=== PATIENT | female | born 1980 | race Caucasian/White ===

== ENCOUNTER 2016-06-22 02:20 | Emergency (ER) | payer BC ==
[~2016-06-22] VITALS: Ht 157.5 cm; Wt 72.0 kg
[~2016-06-22 02:20] MED LIST: METR500T14 PO; ONDA-43 PO; PANT40TA3 PO; PERCOCET PO
[2016-06-22 02:25] VITALS: Ht 157.5 cm; Wt 72.0 kg
[2016-06-22] MEDS ORDERED: ONDANSETRON 4 MG INJ IV STA (02:41)
[2016-06-22] MEDS ORDERED: morphine 4 MG/ML VIAL IV STA (02:41)
[2016-06-22] MEDS ORDERED: SOD CHLORIDE 0.9% 500 ML IV STA (02:41)
--- NOTE | 2016-08-08 22:00 | ERD ---
ER Documentation Chief Complaint Date/Time DATE: 08/08/16 TIME: 22:00 Chief Complaint upper abd pain radaiting to back hx-gallstones, appt-07/11 cholycystectomy HPI This is a 35 year female with upper abdominal pain rating to back. Patient has history of gallstones. Patient has appointment for cholecystectomy in a few weeks. Since her weight, patient's pain is completely resolved. At this point she wants to leave AGAINST MEDICAL ADVICE. Patient understands risks of leaving AGAINST MEDICAL ADVICE including possible due to current condition. She verbalized understanding by repeating this test back in her own words. Patient will follow up. ROS All systems reviewed and are negative except as per history of present illness. Medications Home Meds Active Scripts Acetaminophen with Codeine (Acetaminophen-Cod #3 Tablet) 1 Each Tablet, 1 TAB PO Q6H Y for PAIN, #30 TAB Prov:MAYELIN LICEA 07/06/16 Docusate Sodium* (Colace*) 100 Mg Capsule, 100 MG PO BID for 14 Days, #60 CAP Prov:MAYELIN LICEA 07/06/16 Ondansetron Hcl* (Zofran*) 4 Mg Tab, 4 MG PO Q4H Y for NAUSEA AND OR VOMITING, # 30 TAB Prov:CESAR DAVIDSON 03/23/16 Reported Medications [Fluoxetine] No Conflict Check 07/04/16 Allergies Allergies: Coded Allergies: alcohol (Verified Allergy, Mild, RASH, 11/12/10) Physical Exam Physical Exam Const: [] Head: Atraumatic Eyes: Normal Conjunctiva ENT: Normal External Ears, Nose and Mouth. Neck: Full range of motion..~ No meningismus. Resp: Clear to auscultation bilaterally Cardio: Regular rate and rhythm, no murmurs Abd: Soft, non tender, non distended. Normal bowel sounds Skin: No petechiae or rashes Back: No midline or flank tenderness Ext: No cyanosis, or edema Neur: Awake and alert Psych: Normal Mood and Affect Results 24 hrs Current Medications Medications (Trade) Dose Ordered Sig/Kevyn Route PRN Reason Start Time Stop Time Status Last Admin Dose Admin Sodium Chloride (NS) 500 ml @ 500 mls/hr Q1H STAT IV 06/22/16 02:41 06/22/16 03:40 DC Morphine Sulfate (morphine) 4 mg ONCE STAT IV 06/22/16 02:41 06/22/16 02:42 DC Ondansetron HCl (Zofran Inj) 4 mg ONCE STAT IV 06/22/16 02:41 06/22/16 02:42 DC Procedures/MDM Medical decision-making: This patient was sent AGAINST MEDICAL ADVICE. Upon signing out AMA, patient is alert and oriented 4 with goal oriented speech and good decision-making capacity. Departure Diagnosis: Primary Impression: Abdominal pain Abdominal location: right upper quadrant Qualified Code: R10.11 - Right upper quadrant abdominal pain Condition: Stable AJAY JALLOH Aug 08, 2016 22:00
== END 2016-06-22 03:15 | disposition left against medical advice (07) ==
LOC: E/R 02:20 → MERGE 02:20 → E/R 03:15
DX: Z53.21 Procedure and treatment not carried out due to patient leaving prior to being seen by health care provider (principal)
CPT/HCPCS: J7040

== ENCOUNTER → 2016-06-23 | Outpatient (CLI) | payer BC ==
[~2016-06-23] MED LIST changes: +IODIXANOL LOCM 100 ML BTL ONE; +IODIXANOL LOCM 50 ML BTL ONE; +SOD CHLORIDE 0.9% 100 ML ONE
--- NOTE | 2016-06-23 13:30 | RADRPT ---
PROCEDURE: CTA Abdomen and Pelvis with contrast. CLINICAL INDICATION: Fibromuscular dysplasia TECHNIQUE: CTA of the abdomen and pelvis was performed on a multi-detector scanner. The patient w as imaged following the uncomplicated intravenous administration of 110 cc Visipaque 320. Coronal, sagittal and 3-D reformatted images were obtained from the axial source images. One or more of the following dose reduction techniques were used: automated exposure control, adjustment of the mA and/ or kV according to patient size, use of iterative reconstruction technique. CTDI = 13.92 mGy. DLP = 795.44 mGy-cm. COMPARISON: CT, 03/18/2016 FINDINGS: CT angiogram: There is no abdominal aortic aneurysm or dissection. The visualized portions of the celiac artery, SMA, BEA and bilateral renal arteries are patent without stenosis. Bilateral iliac arteries and vis ualized portions of the bilateral femoral arteries are patent without stenosis as well. CT abdomen: The lung bases are clear. The heart size is normal without pericardial effusion. Liver demonstrate s scattered small benign cysts, stable over time. Cholelithiasis is noted without evidence for chol ecystitis. Biliary tree, pancreas, spleen, adrenal glands and kidneys are unremarkable. No urolith iasis or obstructive uropathy is identified. The stomach is grossly unremarkable. There is no retr operitoneal or suzette hepatis lymphadenopathy. CT pelvis: No bowel obstruction, free intraperitoneal air or abscess is identified. There is no diverticulosis , diverticulitis, colitis or appendicitis. Urinary bladder, uterus and adnexa are grossly unremarka ble. No pelvic mass, free fluid or lymphadenopathy is identified. The surrounding osseous structures are unremarkable. No osteolytic or osteoblastic lesion is detect ed. IMPRESSION: 1. No abdominal aortic aneurysm or dissection is identified. There is no evidence of arterial wall thickening or stenosis in the abdomen and pelvis. 2. Cholelithiasis is seen, without evidence for cholecystitis. 3. No mass, lymphadenopathy, or acute inflammatory process is identified. RPTAT: QQ .Yfn Julian MD, MD Date Time Electronically viewed and signed by .Yfn Julian MD, MD on 06/23/2016 13:30 .R/
== END | disposition home or self-care (01) ==
LOC: MERGE 10:00 → C/S 10:09
PROVIDERS: ATTEND Student in an Organized Health Care Education/Training Program
DX: M85.00 Fibrous dysplasia (monostotic), unspecified site (principal); K80.20 Calculus of gallbladder without cholecystitis without obstruction
CPT/HCPCS: 75635; 84703; Q9967; Z7610

== ENCOUNTER 2016-07-04 07:15 | Inpatient (IN) | payer BC ==
[~2016-07-04] VITALS: Ht 152.4 cm; Wt 71.0 kg
[2016-07-04] VITALS (22 sets, daily range): BP systolic 115–133; BP diastolic 60–93; PULSE 60–90; RESP 16–27; Ht 152.4 cm; Wt 71.0 kg
[~2016-07-04 07:15] MED LIST changes: +CEFAZOLIN 2 GM/50 ML (PMX) 50 ML IVPB SCH; -IODIXANOL LOCM 100 ML BTL ONE; -IODIXANOL LOCM 50 ML BTL ONE; +SOD CHLORIDE 0.9% 1,000 ML IV SCH; -SOD CHLORIDE 0.9% 100 ML ONE
[2016-07-04 08:32] LABS: BASOPHILS % 0.7 % (0.0-2.0); CONDITION 1; EOSINOPHILS # 0.1 10^3/ul (0.0-0.5); EOSINOPHILS % 1.2 % (0.0-7.0); HEMATOCRIT 39.7 % (37.0-47.0); HEMOGLOBIN 13.4 g/dl (12.0-16.0); LYMPHOCYTES # 2.4 10^3/ul (0.8-2.9); LYMPHOCYTES % 39.3 % (15.0-51.0); MEAN CORPUSCULAR HEMOGLOBIN 28.7 pg (29.0-33.0); MEAN CORPUSCULAR HGB CONC 33.9 g/dl (32.0-37.0); MEAN CORPUSCULAR VOLUME 84.8 fl (82.0-101.0); MEAN PLATELET VOLUME 7.7 fl (7.4-10.4); MONOCYTE # 0.3 10^3/ul (0.3-0.9); MONOCYTES % 5.6 % (0.0-11.0); NEUTROPHIL # 3.3 10^3/ul (1.6-7.5); NEUTROPHILS % 53.2 % (39.0-77.0); PLATELET COUNT 291 10^3/UL (140-440); RED BLOOD COUNT 4.68 10^6/ul (4.20-5.40); RED CELL DISTRIBUTION WIDTH 13.7 % (11.5-14.5); UNCORRECTED WBC 6.2 10^3/ul (4.8-10.8); WHITE BLOOD COUNT 6.2 10^3/ul (4.8-10.8)
[2016-07-04 08:40] LABS: INR 1.01; PROTIME 13.3 Sec (12.2-14.2)
[2016-07-04 08:41] LABS: PARTIAL THROMBOPLASTIN TIME 29.8 Sec (25.0-35.0)
[2016-07-04 09:00] LABS: CREATININE 0.61 mg/dl (0.44-1.00); POTASSIUM 4.3 mmol/L (3.5-5.1)
[2016-07-04] MEDS ORDERED: FLUOXETINE (09:01)
[2016-07-04] MEDS ORDERED: IBUPROFEN (09:01)
[2016-07-04] MEDS ORDERED: ONDANSETRON 4 MG INJ ONE (09:30)
[2016-07-04] MEDS ORDERED: CEFAZOLIN 1 GM INJ ONE (09:30)
[2016-07-04] MEDS ORDERED: DEXAMETHASONE 4 MG/ML 1 ML INJ ONE (09:30)
[2016-07-04] MEDS ORDERED: FENTAnyl 50 MCG/ML VIAL ONE (09:30)
[2016-07-04] MEDS ORDERED: MIDAZOLAM 1 MG/ML 2 ML INJ ONE (09:30)
[2016-07-04] MEDS ORDERED: ROCURONIUM 50 MG INJ ONE (09:30)
[2016-07-04] MEDS ORDERED: PROPOFOL 20 ML ONE (09:30)
[2016-07-04] MEDS ORDERED: DIPHENHYDRAMINE 50 MG INJ ONE (09:31)
[2016-07-04] MEDS ORDERED: LIDOCAINE 2% JELLY 5 ML ONE (09:31)
[2016-07-04] MEDS ORDERED: GLYCOPYRROLATE 0.4 MG INJ ONE (10:30)
[2016-07-04] MEDS ORDERED: MIDAZOLAM 1 MG/ML 2 ML INJ IV PRN (10:30)
[2016-07-04] MEDS ORDERED: ONDANSETRON 4 MG INJ IV PRN (10:30)
[2016-07-04] MEDS ORDERED: NEOSTIGMINE 3 MG/3 ML SYRINGE ONE (10:30)
[2016-07-04] MEDS ORDERED: ALBUTEROL 0.5% (NEB) 2.5 MG/0.5 ML AMP INH ONE (10:30)
[2016-07-04] MEDS ORDERED: hydrALAzine 20 MG INJ IV PRN (10:30)
[2016-07-04] MEDS ORDERED: EPHEDrine SULFATE 50 MG/5 ML SYG IV PRN (10:30)
[2016-07-04] MEDS ORDERED: HYDROmorphONE (0.2 MG/ML) 10ML SYG IV PRN ×2 (10:30)
[2016-07-04] MEDS ORDERED: FENTAnyl 50 MCG/ML VIAL IV PRN (10:30)
[2016-07-04] MEDS: HYDROmorphONE (0.2 MG/ML) 10ML SYG IV PRN ×2 (11:53→11:59)
[2016-07-04] MEDS ORDERED: morphine 2 MG INJ IV PRN ×2 (13:00→15:00)
[2016-07-04] MEDS: HYDROmorphONE 1 MG/ML SYG IV PRN ×3 (13:26→20:02)
[2016-07-04] MEDS: D5W-0.45 NACL + KCL 20 MEQ 1,000 ML IV SCH ×3 (13:34→22:40)
--- NOTE | 2016-07-04 13:35 | OPR ---
DATE OF OPERATION: 07/04/2016 PREOPERATIVE DIAGNOSIS: Symptomatic cholelithiasis. POSTOPERATIVE DIAGNOSIS: Symptomatic cholelithiasis with chronic cholecystitis. OPERATION PERFORMED: Laparoscopic cholecystectomy. ANESTHESIA: General. ANESTHESIOLOGIST: Julián Osborne MD SURGEON: Geoff Fajardo MD CAR PILOT: Nelson Montgomery MD INDICATIONS FOR PROCEDURE: The patient is a 35-year-old female who presented with multiple previous episodes of right upper quadrant pain. Ultrasound confirmed a large calcified stone in the neck of the gallbladder. She was counseled as to the risks versus benefits of surgery. She consented and was scheduled for cholecystectomy. DESCRIPTION OF PROCEDURE: The patient was brought to the operating theater, placed under general en dotracheal tube anesthesia. The abdomen was prepped and draped in the usual sterile fashion. A 2 c m incision was made in the midline just above the umbilicus. Subcutaneous tissue was dissected with cautery down to the anterior rectus sheath, 0 Vicryl stay sutures were placed on either side of the linea alba. The linea alba was incised and the abdomen was entered without difficulty. Eduard tro car was then placed in the standard fashion and the abdomen was insufflated to a pressure of 14 mmHg with carbon dioxide. Three accessory ports were then placed under direct vision in the standard fa shion. Through the lateral port sites gallbladder was grasped at the fundus and neck and retracted cephalad and lateral. Significant adhesions consistent with chronic cholecystitis were then taken down with combination of blunt dissection and cautery. Peritoneum overlying the gallbladder was inc ised both medially and laterally to facilitate mobilization of the triangle of Calot with meticulous dissection, the cystic artery was isolated, triply clipped and transected. Subsequently, the cysti c duct was isolated. Two clips were placed across it distally and it was then transected with the e ndovascular CHELY at its junction with the neck of the gallbladder. The gallbladder was then dissecte d out of the gallbladder fossa using cautery. Prior to final transection, irrigation and inspection took place. Minimal bleeding was controlled with cautery. Gallbladder was transected. Laparoscop e was moved to the 12-mm subcostal port site, and the gallbladder was removed from the abdomen using the gallbladder retrieval bag through the umbilical port site. The Eduard trocar was placed back i n the abdomen. The abdomen was reinsufflated. Laparoscope was then reinserted and final irrigation and inspection took place. There was no evidence of bleeding. Three accessory ports were then rem stephane under direct vision. Again, there was no evidence of bleeding. Finally, the umbilical port wa s removed. Midline umbilical fascia was reapproximated using 0 Prolene sutures in [id number]-[id number] f ashion. All wounds were then irrigated with Betadine and skin incisions were closed with skin stapl es. Patient tolerated procedure well. Estimated blood loss was 40 mL. There were no complications and the patient was transported in stable condition to the recovery room. Dictated By: GEOFF FAJARDO MD TL/NTS Conf#: [id number] DID#: [id number] CC: NELSON MONTGOMERY MD;*EndCC*
[2016-07-04] MEDS ORDERED: ACETAMINOPHEN 1000MG/100ML IV 100 ML IVPB PRN (15:00)
[2016-07-04] MEDS: ONDANSETRON 4 MG INJ IV PRN (20:04)
--- NOTE | 2016-07-04 20:46 | HP ---
DATE OF ADMISSION: 07/04/2016 HISTORY OF PRESENT ILLNESS: The patient is a 35-year-old female with history of asthma and fibromus cular dysplasia. The patient had symptomatic cholelithiasis and was evaluated by Dr. Fajardo in gener al surgery consultation. Patient was brought to the hospital and underwent laparoscopic cholecystec prudencio. Post-procedure, the patient experienced significant pain and was admitted for further evaluat ion and management to the medical surgical floor. PAST MEDICAL HISTORY: Positive for a history of asthma, fibromuscular dysplasia, and history of C. diff colitis. PAST SURGICAL HISTORY: The patient denies having any surgeries in the past. FAMILY HISTORY: SOCIAL HISTORY: The patient lives at home with her family. The patient denies any alcohol use. De nies any tobacco use. Denies any illicit drug use. ALLERGIES: PATIENT IS ALLERGIC TO ALCOHOL. HOME MEDICATIONS: 1. Metronidazole. 2. Zofran. 3. Percocet. 4. Protonix. 5. Fluoxetine. 6. Ibuprofen. REVIEW OF SYSTEMS: A 12-point review of systems is negative unless was mentioned in the HPI. PHYSICAL ASSESSMENT: GENERAL: Well-developed, obese female, currently lethargic but easily arousable, awake, alert. VITAL SIGNS: Temperature is 98.2, pulse is 70, blood pressure 121/60, respiratory rate 19, oxygen s aturation is 95% on room air. HEENT: Head is atraumatic, normocephalic. Pupils equal, round, reactive to light and accommodation . Oral mucosa is pink and moist. NECK: Supple, no cervical lymphadenopathy, no thyromegaly. CHEST: Lungs clear bilaterally. There is no rhonchi, wheezes, rales noted. CARDIOVASCULAR: Normal S1, S2. No murmurs, gallops, clicks, rubs noted. ABDOMEN: Round, soft, status post laparoscopic cholecystectomy with surgical incision intact with lion, covered with bandages. Patient has abdominal tenderness. EXTREMITIES: There is no edema, clubbing, cyanosis. Pulses equal bilaterally 2+. SKIN: There is no rash, petechiae noted. NEUROLOGIC: Patient is awake, alert, and oriented x3. No focal deficits noted. Motor strength 5/5 in all extremities. LABORATORY DATA: On admission, CBC: White blood cells 6.2, hemoglobin 13.4, hematocrit 39.7, plate lets 291. Chemistry: Sodium was 142, potassium 4.3, chloride 104, carbon dioxide 24, anion gap 18, BUN is ____, creatinine 0.61, glucose 97, calcium 9.0. PT is 13.3, INR is 1.01, APTT is 29.8. ASSESSMENT AND PLAN: 1. Symptomatic cholelithiasis, status post laparoscopic cholecystectomy. 2. History of asthma. 3. Fibromuscular dysplasia by history. 4. Obesity. Admit patient to medical/surgical floor. Patient stated that she does not like morphine for pain. We will give Dilaudid 0.5 mg p.r.n. for pain. Give Tylenol, Zofran p.r.n. for nausea. Continue IV fluids. The patient also received cefazolin. Continue sequential compression devices for deep veno us thrombosis prophylaxis. Advance diet per surgical recommendations. Incentive spirometer q.1 altagracia r while patient is awake. Further recommendations based on clinical course. Plan of care discussed with Dr. Laureano. Dictated By: MAYELIN LICEA SERVICE PLUMBER for ADRIANA LAUREANO MD SR/NTS Conf#: [id number] DID#: [id number]
[2016-07-05] VITALS: BP 129/74; PULSE 83; RESP 18
[2016-07-05] MEDS: HYDROmorphONE 1 MG/ML SYG IV PRN (00:54)
[2016-07-05] MEDS: ACETAMINOPHEN/CODEINE #3 TAB PO PRN (04:23)
[2016-07-05] MEDS: ONDANSETRON 4 MG INJ IV PRN ×2 (04:28→12:14)
[2016-07-05 04:46] VITALS: BP 125/73; PULSE 77; RESP 18
[2016-07-05] MEDS ORDERED: morphine 2 MG INJ IV PRN (06:00)
[2016-07-05] MEDS: D5W-0.45 NACL + KCL 20 MEQ 1,000 ML IV SCH ×5 (06:05→22:46)
[2016-07-05 06:19] LABS: BASOPHILS % 0.1 % (0.0-2.0); HEMATOCRIT 39.1 % (37.0-47.0); HEMOGLOBIN 13.4 g/dl (12.0-16.0); LYMPHOCYTES # 1.8 10^3/ul (0.8-2.9); LYMPHOCYTES % 14.2 % (15.0-51.0); MEAN CORPUSCULAR HEMOGLOBIN 28.7 pg (29.0-33.0); MEAN CORPUSCULAR HGB CONC 34.1 g/dl (32.0-37.0); MEAN CORPUSCULAR VOLUME 84.3 fl (82.0-101.0); MEAN PLATELET VOLUME 7.7 fl (7.4-10.4); MONOCYTE # 0.7 10^3/ul (0.3-0.9); MONOCYTES % 5.4 % (0.0-11.0); NEUTROPHILS % 80.3 % (39.0-77.0); PLATELET COUNT 285 10^3/UL (140-440); RED BLOOD COUNT 4.65 10^6/ul (4.20-5.40); RED CELL DISTRIBUTION WIDTH 13.7 % (11.5-14.5); UNCORRECTED WBC 12.5 10^3/ul (4.8-10.8); WHITE BLOOD COUNT 12.5 10^3/ul (4.8-10.8)
[2016-07-05 06:20] LABS: CONDITION 1
[2016-07-05 06:21] LABS: POTASSIUM 4.3 mmol/L (3.5-5.1)
[2016-07-05 06:23] LABS: CREATININE 0.47 mg/dl (0.44-1.00)
[2016-07-05 06:24] LABS: CALCIUM 8.8 mg/dl (8.4-10.2)
[2016-07-05 08:11] VITALS: BP 125/79; RESP 20
[2016-07-05] MEDS: IBUPROFEN 400 MG TAB PO PRN ×3 (08:58→19:06)
[2016-07-05 13:28] VITALS: BP 122/79; RESP 20
[2016-07-05 17:00] VITALS: BP 123/74; PULSE 83; RESP 20
--- NOTE | 2016-07-05 18:42 | PN ---
DATE: 07/05/2016 Postop day #1. SUBJECTIVE: Patient is complaining of too much pain, especially on the right side of the abdomen. She claims that it is 8/10 at least, and she has not been eating any food today. She feels nauseous. No bowel movement, barely has passed gas. Barely got out of bed later today in the afternoon around 5:00 p.m. just to sit in the chair, no vomiting. OBJECTIVE GENERAL: Awake and alert, complaining of pain and appears anxious. VITAL SIGNS: Temperature maximum 99, heart rate 80, respirations 20, blood pressure 122/79, saturation 99% on room air. HEENT: WBC increased to 12,500 with 80% neutrophils. Hemoglobin and hematocrit is stable. Chemistry is potassium 4.3, sodium 137. Abdomen is nondistended. It is soft but is tender on palpation on the right side, question of minimal guarding. Bowel sounds hypoactive. EXTREMITIES: Lower extremity, no calf tenderness. ASSESSMENT: 1. Postop day #1 laparoscopic cholecystectomy. 2, Patient is suffering of too much pain, but the cause is not clear to me ( the patient also has been taking fluoxetine at home because of anxiety, they have been started for her 3 months ago). It appears that in this condition, the patient cannot go home, so we will try to keep her overnight and hopefully by tomorrow, we can send her home. We will repeat CBC for tomorrow morning. Dictated By: MARIBEL BRANDON/PERRY Conf#: [id number] DID#: [id number] ROHAN
--- NOTE | 2016-07-05 18:44 | PN ---
Date/Time of Note Date/Time of Note DATE: 07/05/16 TIME: 18:40 Assessment/Plan VTE Prophylaxis VTE Prophylaxis Intervention: SCD's Lines/Catheters IV Catheter Type (from Nrs): Peripheral IV Assessment/Plan Chief Complaint/Hosp Course ASSESSMENT AND PLAN: 1. Symptomatic cholelithiasis, status post laparoscopic cholecystectomy. Advance diet per surgery. Continue incentive spirometer every hour while awake. Continue [place] for pain and Zofran as needed for nausea. 2. History of asthma. 3. Fibromuscular dysplasia by history. 4. Obesity. Further recommendations based on clinical course. Plan of care discussed with Dr. Laureano Problems: Subjective 24 Hr Interval Summary Free Text/Dictation Patient complains of pain, complains of mild nausea, was able to tolerate tolerate full liquid diet well denies any emesis. Patient's complains of generalized weakness currently is out of bed in the chair. Per nurse patient stayed in bed most of the day, refused to get out of bed due to generalized weakness and pain. Exam/Review of Systems Vital Signs Vitals Vital Signs Date Time Temp Pulse Resp B/P Pulse Ox O2 Delivery O2 Flow Rate FiO2 07/05/16 17:00 98.7 83 20 123/74 98 Room Air 07/05/16 07:00 2.0 07/04/16 12:08 21 Intake and Output 07/04/16 07/04/16 07/05/16 15:00 23:00 07:00 Intake Total 400 ml 1000 ml 850 ml Output Total 40 ml Balance 360 ml 1000 ml 850 ml Exam GENERAL: Well-developed, obese female, currently awake, alert. HEENT: Head is atraumatic, normocephalic. Pupils equal, round, reactive to light and accommodation. Oral mucosa is pink and moist. NECK: Supple, no cervical lymphadenopathy, no thyromegaly. CHEST: Lungs clear bilaterally. There is no rhonchi, wheezes, rales noted. CARDIOVASCULAR: Normal S1, S2. No murmurs, gallops, clicks, rubs noted. ABDOMEN: Round, soft, status post laparoscopic cholecystectomy with surgical incision intact with lion, covered with bandages. Patient has abdominal tenderness. EXTREMITIES: There is no edema, clubbing, cyanosis. Pulses equal bilaterally 2 +. SKIN: There is no rash, petechiae noted. NEUROLOGIC: Patient is awake, alert, and oriented x3. Results Result Diagram: 07/05/16 0525 07/05/16 0525 Results 24 hrs Laboratory Tests Test 07/05/16 05:25 Anion Gap 16 Basophils # 0.0 Basophils % 0.1 Blood Morphology Comment Blood Urea Nitrogen 6 L Calcium Level 8.8 Carbon Dioxide Level 23 Chloride Level 102 Creatinine 0.47 Eosinophils # 0.0 Eosinophils % 0.0 Glucose Level 144 # Hematocrit 39.1 Hemoglobin 13.4 Lymphocytes # 1.8 Lymphocytes % 14.2 L Mean Corpuscular Hemoglobin 28.7 L Mean Corpuscular Hemoglobin Concent 34.1 Mean Corpuscular Volume 84.3 Mean Platelet Volume 7.7 Monocytes # 0.7 Monocytes % 5.4 Neutrophils # 10.0 H Neutrophils % 80.3 H Nucleated Red Blood Cells # 0.0 Nucleated Red Blood Cells % 0.0 Platelet Count 285 Potassium Level 4.3 Red Blood Count 4.65 Red Cell Distribution Width 13.7 Sodium Level 137 White Blood Count 12.5 #H Medications Medications Current Medications Ondansetron HCl (Zofran Inj) 4 mg Q6H PRN IV NAUSEA AND/OR VOMITING Last administered on 07/05/16 12:14; Admin Dose 4 MG; Start 07/04/16 at 15:00 Acetaminophen/ Codeine Phosphate 1 tab 1 tab Q6H PRN PO PAIN; Start 07/04/16 at 15:00 Acetaminophen 100 ml @ 400 mls/hr Q6H PRN IVPB PAIN; Start 07/04/16 at 15:00 Potassium Chloride/Dextrose/ Sod Cl (D5-1/2ns + KCl 20 Meq) 1,000 ml @ 125 mls/ hr Q8H IV Last administered on 07/05/16 14:46; Admin Dose 125 MLS/HR; Start at 11:10 Hydromorphone HCl (Dilaudid) 0.5 mg Q3H PRN IV PAIN Last administered on 00:54; Admin Dose 0.5 MG; Start 07/04/16 at 13:30 Ibuprofen (Motrin) 400 mg Q6H PRN PO PAIN OR TEMP ABOVE 38C Last administered on 07/05/16 13:36; Admin Dose 400 MG; Start 07/05/16 at 06:00 Morphine Sulfate (morphine) 2 mg Q1H PRN IV PAIN Last administered on 2/21/ 17at 05:50; Admin Dose 2 MG; Start 07/05/16 at 06:00 MAYELIN LICEA Jul 05, 2016 18:44
[2016-07-05 19:30] VITALS: BP 100/70; RESP 20
[2016-07-05] MEDS: FLUOXETINE 20 MG CAP PO SCH (19:48)
[2016-07-06] MEDS: D5W-0.45 NACL + KCL 20 MEQ 1,000 ML IV SCH ×3 (02:41→16:11)
[2016-07-06 06:06] LABS: ALBUMIN 3.6 g/dl (3.3-4.9)
[2016-07-06 06:07] LABS: POTASSIUM 4.2 mmol/L (3.5-5.1)
[2016-07-06 06:09] LABS: ALBUMIN/GLOBULIN RATIO 1.16; BILIRUBIN,INDIRECT 0.6 mg/dl (0-1.1); BILIRUBIN,TOTAL 0.6 mg/dl (0.2-1.3); CREATININE 0.55 mg/dl (0.44-1.00); TOTAL PROTEIN 6.7 g/dl (6.1-8.1)
[2016-07-06 06:10] LABS: CALCIUM 8.5 mg/dl (8.4-10.2)
[2016-07-06 08:15] VITALS: BP 109/64; RESP 22
[2016-07-06] MEDS: IBUPROFEN 400 MG TAB PO PRN ×2 (08:31→14:44)
[2016-07-06] MEDS: FLUOXETINE 20 MG CAP PO SCH (08:32)
[2016-07-06 08:57] LABS: BASOPHILS % 0.3 % (0.0-2.0); EOSINOPHILS % 0.5 % (0.0-7.0); HEMOGLOBIN 12.4 g/dl (12.0-16.0); LYMPHOCYTES # 2.4 10^3/ul (0.8-2.9); LYMPHOCYTES % 28.8 % (15.0-51.0); MEAN CORPUSCULAR HEMOGLOBIN 28.8 pg (29.0-33.0); MEAN CORPUSCULAR HGB CONC 33.6 g/dl (32.0-37.0); MEAN CORPUSCULAR VOLUME 85.7 fl (82.0-101.0); MEAN PLATELET VOLUME 8.1 fl (7.4-10.4); MONOCYTE # 0.7 10^3/ul (0.3-0.9); MONOCYTES % 8.5 % (0.0-11.0); NEUTROPHIL # 5.1 10^3/ul (1.6-7.5); NEUTROPHILS % 61.9 % (39.0-77.0); PLATELET COUNT 259 10^3/UL (140-440); RED BLOOD COUNT 4.31 10^6/ul (4.20-5.40); RED CELL DISTRIBUTION WIDTH 13.9 % (11.5-14.5); UNCORRECTED WBC 8.3 10^3/ul (4.8-10.8); WHITE BLOOD COUNT 8.3 10^3/ul (4.8-10.8)
[2016-07-06 09:04] LABS: CONDITION 1
--- NOTE | 2016-07-06 13:33 | PN ---
DATE: 07/06/2016 Postoperative day #2. Postoperative laparoscopic cholecystectomy. SUBJECTIVE: Feels much better, has passed gas, though no bowel movement yet. Has been tolerating d iet. The pain is much more under control and belly pain is controlled. OBJECTIVE: VITAL SIGNS: Temperature 98.3, pulse rate 101, but also 86, respirations 20, blood pressure 109/64 , saturation 93% on room air. LABORATORIES: Today WBC dropped to 8300, normal. Hemoglobin and hematocrit is stable. Chemistry: BUN and creatinine is normal. Bilirubin is 0.6, normal. AST is slightly elevated at 84. ALT is s lightly elevated at 74. Abdomen is soft. Wound is clean. ASSESSMENT: Status post laparoscopic cholecystectomy. Patient was in a lot of pain yesterday and w as nauseous, and could not tolerate a diet. Today is much better, has tolerated diet and is passing gas. Temperature is under control. Pain is under control. PLAN: The patient can be discharged from surgical point of view to go home today. Followup by Dr. Fajardo in his office. The patient should call the office and make the appointment. Dictated By: MARIBEL MONTGOMERY MD PS/NTS Conf#: [id number] DID#: [id number]
[2016-07-06] MEDS ORDERED: ACET1TAB40 PO (16:42)
[2016-07-06] MEDS ORDERED: DOCU-144 PO (16:42)
[2016-07-06 19:55] VITALS: BP 107/74; PULSE 87; RESP 18
[2016-07-06] MEDS: ACETAMINOPHEN/CODEINE #3 TAB PO PRN (19:59)
[2016-07-06] MEDS ORDERED: FLUOXETINE 20 MG CAP PO SCH (21:00)
== END 2016-07-06 20:30 | disposition home or self-care (01) | DRG 419 ==
LOC: SDS 07:15 → MS2 12:44 → SDS 07-05 18:44 → MS2 07-05 18:44
PROVIDERS: ADMIT Internal Medicine; ATTEND Internal Medicine
PROC: 0FT44ZZ Resection of Gallbladder, Percutaneous Endoscopic Approach (ICD-10-PCS; principal; 2016-07-04 09:00)
DX: K80.10 Calculus of gallbladder with chronic cholecystitis without obstruction (principal); E66.9 Obesity, unspecified; Z68.30 Body mass index [BMI] 30.0-30.9, adult; J45.909 Unspecified asthma, uncomplicated; Q79.8 Other congenital malformations of musculoskeletal system
CPT/HCPCS: 80048; 80053; 84703; 85025; 85610; 85730; 88304; 94664; J0690; J1100; J1170; J1200; J2250; J2270; J2405; J2710; J3010; J3480

== ENCOUNTER 2016-11-22 13:22 | Observation (INO) | payer BC ==
[2016-11-21 16:12] VITALS: BMI 30.2
[2016-11-22] VITALS (33 sets, daily range): BP systolic 107–146; BP diastolic 61–83; PULSE 82–116; RESP 12–22; Ht 170.2 cm; Wt 73.0 kg
[~2016-11-22] VITALS: Ht 170.2 cm; Wt 73.0 kg
[~2016-11-22 13:22] MED LIST changes: +ACET1TAB40 PO; -CEFAZOLIN 2 GM/50 ML (PMX) 50 ML IVPB SCH; +DOCU-144 PO; +FLUOXETINE; -METR500T14 PO; -PANT40TA3 PO; -PERCOCET PO; -SOD CHLORIDE 0.9% 1,000 ML IV SCH
[2016-11-22] MEDS ORDERED: FLUO10TA PO (13:55)
[2016-11-22] MEDS ORDERED: DEXAMETHASONE 4 MG/ML 1 ML INJ IV SCH (14:00)
[2016-11-22] MEDS ORDERED: CEFAZOLIN 1 GM/50 ML (PMX) 50 ML IVPB SCH (14:00)
--- NOTE | 2016-11-22 15:22 | HPN ---
Date/Time of Note Date/Time of Note DATE: 11/22/16 TIME: 15:22 Interval H&P Admission Note Pt. seen H&P reviewed: No system changes GLYNN ARAIZA MD Nov 22, 2016 15:22
[2016-11-22] MEDS ORDERED: OXYMETAZOLINE 0.05% 15 ML NAS SPRAY NASAL ONE (16:03)
[2016-11-22] MEDS ORDERED: BACITRACIN/POLYMYXIN 28.35 GM OINT TOP ONE (16:03)
[2016-11-22] MEDS ORDERED: LIDOCAINE 2%/EPI (MDV) 20ML INJ ONE (16:04)
[2016-11-22] MEDS ORDERED: COCAINE 4% 4 ML TOP ONE (16:17)
[2016-11-22] MEDS ORDERED: LIDOCAINE 2% (SDV) 5 ML INJ ONE (16:19)
[2016-11-22] MEDS ORDERED: MEPERIDINE 100 MG INJ ONE (16:19)
[2016-11-22] MEDS ORDERED: PROPOFOL 20 ML ONE (16:19)
[2016-11-22] MEDS ORDERED: GLYCOPYRROLATE 0.4 MG INJ ONE ×2 (16:19→17:33)
[2016-11-22] MEDS ORDERED: NEOSTIGMINE 3 MG/3 ML SYRINGE ONE (16:19)
[2016-11-22] MEDS ORDERED: ROCURONIUM 50 MG INJ ONE (16:19)
[2016-11-22] MEDS ORDERED: SUCCINYLCHOLINE CHLORIDE 100 MG/5 ML SYG IV ONE (16:19)
[2016-11-22] MEDS ORDERED: CEFAZOLIN 1 GM INJ ONE (17:02)
[2016-11-22] MEDS ORDERED: ONDANSETRON 4 MG INJ ONE (17:23)
[2016-11-22] MEDS ORDERED: DEXAMETHASONE 4 MG/ML 1 ML INJ ONE (17:24)
[2016-11-22] MEDS ORDERED: LABETALOL HCL 20MG INJ IV PRN (17:30)
[2016-11-22] MEDS ORDERED: MEPERIDINE 25 MG INJ IV PRN (17:30)
[2016-11-22] MEDS ORDERED: EPHEDrine SULFATE 50 MG/5 ML SYG IV PRN (17:30)
[2016-11-22] MEDS ORDERED: HYDROmorphONE (0.2 MG/ML) 10ML SYG IV PRN ×3 (17:30)
[2016-11-22] MEDS ORDERED: FENTAnyl 50 MCG/ML VIAL IV PRN ×3 (17:30)
[2016-11-22] MEDS ORDERED: DIPHENHYDRAMINE 50 MG INJ IV PRN (17:30)
[2016-11-22] MEDS ORDERED: OXYCODONE/ACETAMINOPHEN (5/325) TAB PO PRN ×2 (17:30)
[2016-11-22] MEDS ORDERED: hydrALAzine 20 MG INJ IV PRN (17:30)
[2016-11-22] MEDS ORDERED: METOCLOPRAMIDE 10 MG INJ IV PRN (17:30)
[2016-11-22] MEDS ORDERED: MIDAZOLAM 1 MG/ML 2 ML INJ IV PRN (17:30)
[2016-11-22] MEDS ORDERED: ONDANSETRON 4 MG INJ IV PRN (17:30)
[2016-11-22] MEDS ORDERED: morphine (1 MG/ML) 10ML SYRINGE IV PRN ×3 (17:30)
--- NOTE | 2016-11-22 17:42 | OPR ---
Date/Time of Note Date/Time of Note DATE: 11/22/16 TIME: 17:37 Operative Report Procedure Date: Nov 22, 2016 Preoperative Diagnosis Chronic sinusitis with sinus pain Postoperative Diagnosis Same Operation Performed Bilateral, image guided endoscopic maxillary antrostomies, sphenoid sinusotomies , total ethmoidectomies, frontal sinusotomies. Surgeon: GLYNN ARAIZA MD Anesthesia: general Estimated Blood Loss: minimal Specimens None Complications: None Pt Condition Post Procedure: stable Disposition: PACU Indications Chronic sinus pain Operative\Procedure Findings Osteitis, mucosal edema, no pus or polyp Procedure Description Description of procedure:The patient was identified in the holding area. We had a discussion to confirm understanding of all indications risks benefits alternatives and postoperative care associated with the operation. The patient signed informed consent was taken to the operating room. The patient was laid supine on the operating room table and anesthesia was provided in the following manner: GETA. The face was draped in sterile fashion and the nose was packed with 4% cocaine pledgets. 0 endoscopy was performed of all nasal turbinates and meati. This revealed the findings described above. The procedure began on the right side under endoscopic guidance. The microdebrider was used to resect the uncinate process in an inferior to superior fashion until the area of the frontal sinus outflow tract was reached. Frontal sinusotomy: A curved curet was used to remove the bony elements of the Ager Nasi cell. Next, with a 45 camera, the frontal sinus outflow tract was explored and any abnormal mucosa was resected. Care was taken not to cause too much mucosal disruption in this area in order to avoid scarring and stenosis. The tract was patent without polyp or obstructive pathology. A frontal sinus balloon was placed and inflated. It was retracted and excess bony elements removed. Maxillary antrostomy: Once the frontal sinus was addressed, the maxillary sinus ostium was identified and entered with the microdebrider. It was widened anteriorly and inferiorly to complete the maxillary antrostomy. No intrasinus mass or polyp was seen. Ethmoidectomy: Next, the zero degree endoscope was again used to visualize the middle meatus. Anterior and posterior ethmoid air cells were resected in an inferior to superior fashion sparing the lamina papyracea and the skull base. All excess mucosa and polypoid tissue were removed with an upbiting forceps. Sphenoid sinusotomy: The anterior face of the sphenoid sinus was identified with the zero degree endoscopy and entered inferiorly and medially with a seeker. The microdebrider was used to widen this inferomedially to complete the sphenoid sinusotomy. At this point, all bony fragments were removed and a large Nasopore was placed into the ethmoidectomy defect. The contralateral side was at this point addressed in the same sequence dictated above. Frontal sinusotomy, total ethmoidectomy, sphenoid sinusotomy and maxillary antrostomy proceeded in the exact same sequences as the contralateral side, with the following exceptions: . At completion, this side was also packed with a Nasopore pack and bilateral hemostasis was ensured with a final nasal endoscopy. The patient was awakened, extubated and taken to the PACU in stable condition. Complications: None. GLYNN ARAIZA MD Nov 22, 2016 17:41
[2016-11-22] MEDS ORDERED: ACETAMINOPHEN/CODEINE #3 TAB PO PRN (18:00)
[2016-11-23] MEDS: ONDANSETRON 4 MG TAB PO PRN ×2 (00:10→08:08)
[2016-11-23 00:45] VITALS: BP 123/70; PULSE 100; RESP 16
[2016-11-23 07:40] VITALS: BP 124/73; RESP 20
[2016-11-23] MEDS: ACETAMINOPHEN 325 MG TAB PO PRN ×2 (08:10→12:25)
== END 2016-11-23 12:50 | disposition home or self-care (01) ==
LOC: SDS 13:22 → MS1 20:12 → SDS 22:28
PROVIDERS: ADMIT Otolaryngology; ATTEND Otolaryngology
DX: J32.9 Chronic sinusitis, unspecified (principal); E66.9 Obesity, unspecified; Z68.25 Body mass index [BMI] 25.0-25.9, adult
CPT/HCPCS: 31255; 31256; 31276; 31287; 84703; J0690; J1100; J2175; J2405; J2710; J7999; Z7500; Z7512; Z7610; G0378